=== PATIENT | female | born 1930 | race Caucasian/White ===

== ENCOUNTER 2020-09-03 09:00 | Outpatient (CLI) | payer MEDICARE, BC ==
[2020-09-03] MEDS ORDERED: LIDOCAINE SOLN 4% 50 ML BOTTLE ONE (09:30)
[2020-09-03] MEDS ORDERED: LIDOCAINE 2% JEL 5 ML TUBE ONE (09:31)
== END 2020-09-03 23:59 | disposition home or self-care (01) ==
LOC: WOU 09:00
PROVIDERS: ATTEND Specialist
DX: T81.89XA Other complications of procedures, not elsewhere classified, initial encounter (principal); S81.801A Unspecified open wound, right lower leg, initial encounter; X58.XXXA Exposure to other specified factors, initial encounter; Y93.89 Activity, other specified; Y92.89 Other specified places as the place of occurrence of the external cause; Z79.02 Long term (current) use of antithrombotics/antiplatelets
CPT/HCPCS: 11042; A6209